=== PATIENT | female | born 1970 | race Caucasian/White ===

== ENCOUNTER → 2019-06-10 | Day surgery (SDC) | payer SELFPAY ==
[~2019-06-10] MED LIST: Dexamethasone 20 MG/5 ML VIAL ONE; Fentanyl 100 MCG/2 ML VIAL ONE; Lidocaine 1% PF 5 ML VIAL ONE; Ondansetron PF 4 MG/2 ML Vial ONE; PHENYLEPHRINE-NS 100 MCG/ML 10 ML SYRINGE ONE; PROPOFOL 200 MG/20 ML VIAL ONE; Rocuronium Bromide 10 MG/ML (10ML VIAL) ONE; Succinylcholine Chloride 20 MG/ML 10 ml SYRINGE FS ONE
--- NOTE | 2019-06-10 03:27 | HP ---
DATE OF CONSULTATION: 06/10/2019 REASON FOR CONSULTATION: Esophageal food bolus impaction. HISTORY OF PRESENT ILLNESS: The patient is a 49-year-old female with a past medical history of hypertension presenting with complaints of acute-onset dysphagia earlier today. She states that she was in her usual state of health until approximately 3 p.m. this afternoon when she was sitting down to lunch and eating a taco when she began having a sensation that the food got stuck at the level of the xiphoid process. She attempted to drink various liquids, with unsuccessful attempts, in order to force the food bolus into the stomach and instead induced increased nausea and vomiting as a result. Since that time, whenever she had attempted to eat or drink any food stuff, it would cause nausea and regurgitation of the recently ingested food. With the inability to pass the food bolus into the stomach, she then sought healthcare assistance at a local ER, where she was evaluated by the ER physician and a CT scan showing a food bolus in the distal esophagus impacted near the GE junction and a fluid level proximal to this food bolus consistent with an esophageal food bolus impaction. She was subsequently transferred to [facility] for further evaluation. Currently, she states she is doing well, but still could not tolerate her own secretions with an emesis bag at bedside, currently endorses nausea with regurgitation of any ingested foodstuff, but denies any hematemesis associated with regurgitation. Currently, she denies any fevers, chills, hematemesis, melena, hematochezia, abdominal pain, or weight loss. Of note, the patient also states that she has been having episodes of dysphagia that have been present for the last 20+ years characterized by the intermittent sensation that food would get stuck at the level of the xiphoid process. She has had approximately 4 to 5 different discrete episodes where she experienced food getting stuck at a very similar spot as tonight, but was able to pass on her own. REVIEW OF SYSTEMS: A 10-category review of systems was obtained with all responses negative, except for the pertinent positives as listed in the HPI. PAST MEDICAL HISTORY: As per HPI. PAST SURGICAL HISTORY: Right femur reconstruction with paolo placement and left ovary removal. FAMILY HISTORY: Father and brother with pancreatic cancer with an additional brother with a history of throat cancer. 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 OUTPATIENT MEDICATIONS: None. ALLERGIES: NO KNOWN DRUG ALLERGIES. PHYSICAL EXAMINATION: VITAL SIGNS: Temperature 98.3, pulse 87, blood pressure 153/105, respiratory rate 16, and saturating 97% on room air. GENERAL: The patient is lying in bed, in no acute distress, alert, and oriented x4. HEENT: Normocephalic and atraumatic. NECK: Supple. No scleral icterus or JVD is noted. CARDIOVASCULAR: Regular rate and rhythm with no discernible murmurs, gallops, or rubs. RESPIRATORY: Clear to auscultation bilaterally with no discernible wheezes or rales. ABDOMEN: Normoactive bowel sounds. Soft, nontender, and nondistended. EXTREMITIES: No cyanosis, clubbing, or edema. LABORATORY DATA: CBC with a white blood cell count of 12.7, hemoglobin 12.4, hematocrit 38.7, and platelets 310. Chemistry with a sodium of 145, potassium 3.9, chloride 111, carbon dioxide 22, BUN 17, creatinine 0.7, and glucose 134. AST 19, ALT 23, alkaline phosphatase 115, and total bilirubin 0.2. IMAGING DATA: CT of the chest was obtained on June 09, 2019, with the final read still pending at this time. Per my read, there is evidence of a food bolus impacted in the distal esophagus at approximately the gastroesophageal junction with air-fluid levels proximal to this obstruction, again consistent with a food bolus impaction. ASSESSMENT AND PLAN: The patient is a 49-year-old female with a past medical history of hypertension presenting with a food bolus impaction. Food bolus impaction. The patient is presenting with a longstanding history of dysphagia characterized as intermittent episodes of food getting stuck in the distal esophagus, primarily with the ingestion of meats. This has been present for the last 20+ years, but the patient has not sought healthcare assistance or evaluation for this particular ailment. However, earlier today, she ingested taco meat that again exhibited a sensation of getting stuck at the level of the xiphoid process, but was unable to clear on her own to the point where the patient was not able to tolerate her own secretions. She was evaluated at the [facility] emergency room and noted to have a CT chest consistent with a food bolus impaction and subsequently transferred to [facility] for further evaluation. At this time, her clinical history and imaging are consistent with a food bolus impaction, and I would recommend an urgent upper endoscopy for removal of the food bolus to prevent complications from this particular condition. RECOMMENDATIONS: 1. Would continue the patient on n.p.o. status in preparation for an EGD. 2. Would recommend an urgent EGD for evaluation of the esophagus or removal of the food bolus in the distal esophagus. 3. Further recommendations are to follow the EGD. We will continue to follow. Please call with any questions. Job ID: [id number]
--- NOTE | 2019-06-10 03:42 | OP ---
DATE OF PROCEDURE: 06/10/2019 PROCEDURE: Esophagogastroduodenoscopy with removal of foreign body. INDICATION FOR PROCEDURE: Esophageal food bolus impaction. DESCRIPTION OF PROCEDURE: After the risks and benefits of the procedure were explained to the patient including risks of bleeding, infection, perforation, reactions to anesthesia, aspiration, and/or pain, informed consent was obtained. The patient was then taken to the endoscopy suite, where general anesthesia was administered with endotracheal tube intubation via Anesthesia support. Once the patient was intubated and sedated, she was maneuvered into the left lateral decubitus position in preparation for the EGD. Once in proper position, the standard gastroscope was introduced into the mouth with intubation of the esophagus, stomach, and proximal small intestine with the findings listed below. The patient tolerated the procedure well with no immediate perioperative complications. Upon conclusion of the procedure, all equipment was removed from the patient, and she was transferred to PACU in satisfactory condition. FINDINGS: Esophagus: Normal-appearing mucosa was seen in both the proximal and mid esophagus; however, a moderate amount of retained fluid was seen in the distal esophagus as well as a large meat food bolus impacted at approximately the gastroesophageal junction. Using rat-tooth forceps, the food bolus was then grasped, and on 2 different attempts, was able to be successfully removed through the mouth. Evaluation of the mucosa after removal of the foreign body revealed significant mucosal erythema, friability, and ulceration at the gastroesophageal junction with what appeared to be a possible fibrous ring in the distal esophagus but was difficult to tell due to the amount of inflammation and edema. Dilation was not attempted at this time due to the significant amount of inflammation, edema, and increased risk of perforation with that maneuver. Otherwise, there was no evidence of mass lesions in the distal esophagus. Stomach: Normal-appearing mucosa was seen in the gastric cardia, fundus, body, greater curvature, antrum, and incisura. There was no evidence of erosions, ulcerations, mass, lesions, or active/recent bleeding. Duodenum: Normal-appearing mucosa was seen in both the duodenal bulb and second portion of the duodenum. There was no evidence of erosions, ulcerations, mass lesions, or active/recent bleeding. IMPRESSION: 1. Esophageal food bolus impaction at the gastroesophageal junction, successfully removed with rat-tooth forceps. 2. Possible distal esophageal fibrous ring that was benign and intrinsic in appearance. No intervention taken during this examination due to increased risk of perforation. 3. Significant amount of mucosal erythema, ulceration, and edema in the distal esophagus secondary to the food bolus impaction. RECOMMENDATIONS: 1. Would highly recommend chewing food adequately before swallowing to prevent further recurrences of food bolus impaction. 2. Would place the patient on a liquid diet for the next 24 to 48 hours postprocedure, then advance diet as tolerated to a soft diet. 3. Would have the patient follow up in the GI clinic in approximately 2 to 3 weeks for further evaluation at that time and repeat upper endoscopy to evaluate for possible distal esophageal stricture/stenosis. 4. Would recommend omeprazole 40 mg daily until repeat upper endoscopy. Job ID: [id number]
== END ==
LOC: SDC 01:48
PROVIDERS: ATTEND Internal Medicine
PROC: 0DC58ZZ Extirpation of Matter from Esophagus, Via Natural or Artificial Opening Endoscopic (ICD-10-PCS; principal; 2019-06-10)
DX: T18.128A Food in esophagus causing other injury, initial encounter (principal); I10 Essential (primary) hypertension; F17.210 Nicotine dependence, cigarettes, uncomplicated
CPT/HCPCS: J1100; J2001; J2405; J2704; J3010

== ENCOUNTER 2021-12-08 12:33 | Inpatient (IN) | payer SELFPAY ==
[~2021-12-08 12:33] MED LIST changes: -Dexamethasone 20 MG/5 ML VIAL ONE; -Fentanyl 100 MCG/2 ML VIAL ONE; +Iopamidol 370 76% 100 ML VIAL ONE; -Lidocaine 1% PF 5 ML VIAL ONE; -Ondansetron PF 4 MG/2 ML Vial ONE; -PHENYLEPHRINE-NS 100 MCG/ML 10 ML SYRINGE ONE; -Succinylcholine Chloride 20 MG/ML 10 ml SYRINGE FS ONE
[2021-12-08] MEDS ORDERED: Ondansetron ODT 4 MG TAB SL PRN (13:00)
[2021-12-08] MEDS ORDERED: Ondansetron PF 4 MG/2 ML Vial IVP PRN (13:00)
[2021-12-08] MEDS: Sodium Chloride 0.9% 1,000 ML IV SCH (18:37)
[2021-12-08] MEDS: BARICITINIB 2 MG TAB PO SCH (21:07)
[2021-12-08] MEDS ORDERED: HYDROcodone/Acetaminophen 5/325 mg Tablet PO SCH (21:15)
[2021-12-09] MEDS ORDERED: Metoprolol Tartrate 5 MG/5 ML VIAL ONE (02:25)
[2021-12-09] MEDS ORDERED: Metoprolol Tartrate 5 MG/5 ML VIAL IVP SCH (02:30)
[2021-12-09 02:34] LABS: CO2 Tension 40.9 mmHg (35.0-45.0); Calcium, Ionized (arterial) 1.15 mmol/L (1.12-1.30); Carboxyhemoglobin (COHb) 0.1 gm% (0.0-3.0); Hemoglobin (Hb) 10.2 g/dL (12.0-16.0); O2 Tension (PaO2), arterial 60.5 mmHg (80.0-100.0); Potassium - ABG Lab 3.98 mmol/L (3.70-5.30); pH, Arterial 7.39 (7.35-7.45)
[2021-12-09 02:35] LABS: Puncture Site RRA
[2021-12-09 02:36] LABS: ALV-art Gradient 530.075 mmHg (0-20)
[2021-12-09] MEDS ORDERED: Lorazepam 2 MG/ML VIAL ONE (02:39)
[2021-12-09] MEDS ORDERED: Lorazepam 2 MG/ML VIAL SLOW IVP SCH (02:45)
[2021-12-09] MEDS ORDERED: Diltiazem HCl 125 MG, Admixture Fee 1 EACH in Sodium Chloride 0.9% 100 ML IVPB SCH (06:15)
[2021-12-09] MEDS: Lorazepam 2 MG/ML VIAL SLOW IVP PRN ×5 (06:20→22:52)
[2021-12-09] MEDS ORDERED: Azithromycin 500 MG in Sodium Chloride 0.9% 250 ML 250 ML IVPB SCH (08:00)
[2021-12-09] MEDS: cefTRIAXone\\ROCEPHIN 1 GM in Sodium Chloride 0.9% 100 ML IVPB SCH (08:01)
[2021-12-09] MEDS: Sodium Chloride 0.9% 1,000 ML IV SCH (08:02)
[2021-12-09] MEDS: Enoxaparin Sodium 40 MG/0.4 ML SYRINGE SC SCH ×2 (08:42→20:55)
[2021-12-09] MEDS: Dexamethasone 10 MG/ML VIAL SLOW IVP SCH ×2 (08:42→20:54)
[2021-12-09] MEDS ORDERED: Furosemide 20 MG/2 ML VIAL SLOW IVP SCH (09:00)
[2021-12-09] MEDS ORDERED: Dexamethasone 10 MG/ML VIAL SLOW IVP SCH (09:00)
[2021-12-09] MEDS ORDERED: FLU VACC QS2021-22(6MOS UP)/PF 60 MCG/0.5 ML SYRINGE IM ONE (09:00)
[2021-12-09] MEDS ORDERED: Enoxaparin Sodium 40 MG/0.4 ML SYRINGE SC SCH (09:00)
[2021-12-09] MEDS ORDERED: Propofol 1,000 MG/100 ML VIAL IV ONE (12:01)
[2021-12-09] MEDS ORDERED: Fentanyl 100 MCG/2 ML VIAL ONE (12:01)
[2021-12-09] MEDS ORDERED: Propofol BOLUS 1,000 MG/100 ML VIAL IV PRN (12:30)
[2021-12-09] MEDS ORDERED: DISCONTINUE PREVIOUS NARCOTIC PAIN MEDICATIONS AND BENZODIAZEPINES FS SCH (12:30)
[2021-12-09] MEDS ORDERED: Fentanyl BOLUS 250 ML IVPB PRN (12:30)
[2021-12-09] MEDS ORDERED: Ventilator Sedation Protocol 1 EACH FS SCH (12:30)
[2021-12-09] MEDS ORDERED: Morphine 4 MG/ML VIAL SLOW IVP PRN (12:31)
[2021-12-09 12:43] LABS: Actual Bicarbonate (HCO3a) 24.7 mEq/L (22-28); Base Excess (BEa) -0.6 mEq/L (-2.0 to +3.0); CO2 Tension 43.5 mmHg (35.0-45.0); Carboxyhemoglobin (COHb) 0.2 gm% (0.0-3.0); Hemoglobin (Hb) 10.4 g/dL (12.0-16.0); O2 Tension (PaO2), arterial 70.6 mmHg (80.0-100.0); Potassium - ABG Lab 3.81 mmol/L (3.70-5.30); pH, Arterial 7.37 (7.35-7.45)
[2021-12-09 12:44] LABS: ALV-art Gradient 604.025 mmHg (0-20); Puncture Site RBA
[2021-12-09] MEDS: Fentanyl CADD 100 ML IV SCH (13:37)
[2021-12-09] MEDS: Propofol 1,000 MG/100 ML VIAL IV PRN ×4 (15:06→23:48)
[2021-12-09] MEDS ORDERED: Vecuronium 10 MG VIAL ONE (15:21)
[2021-12-09] MEDS: Azithromycin 500 MG in Sodium Chloride 0.9% 250 ML 250 ML IVPB SCH (15:35)
[2021-12-09 16:32] LABS: #Lymphocytes 0.8 thou/uL (1.20-3.40); #Monocytes 0.8 thou/uL (0.11-0.59); #Neutrophils 11.1 thou/uL (1.40-6.50); %Lymphocytes 6.3 % (21.0-51.0); %Monocytes 6.5 % (0.0-10.0); %Neutrophils 87.2 % (42.0-75.0); Hemoglobin 8.8 g/dL (12.0-16.0); Mean Corpuscular HGB CONC 31.4 g/dL (32.0-36.0); Mean Corpuscular Hemoglobin 23.1 pg (27.0-31.0); Mean Corpuscular Volume 73.7 fL (78.0-98.0); Mean Platelet Volume 7.5 fL (7.4-10.4); Platelet Count 438 thou/uL (130-400); RBC Distribution Width 16.1 % (11.5-14.5); Red Blood Cell (RBC) Count 3.79 mill/uL (4.20-5.40); White Blood Cell (WBC) Count 12.7 thou/uL (4.8-10.8)
[2021-12-09 16:43] LABS: Anion Gap 13 mmol/L (10-20); BUN (Urea Nitrogen) 15 mg/dL (9.8-20.1); Calc. Creatinine Clearance 167 mL/min (70-130); Calcium 9.2 mg/dL (7.8-10.44); Carbon Dioxide 26 mmol/L (22-29); Chloride 105 mmol/L (98-107); Glucose 164 mg/dL (70-105); Potassium 3.7 mmol/L (3.5-5.1); Sodium 140 mmol/L (136-145)
[2021-12-09 17:00] LABS: Hypochromia SLIGHT = 6-15 cells (100X) (0-5/hpf); MDiff Complete? YES; Microcytosis SLIGHT = 6-15 cells (100X) (0-5/hpf); Platelet Morphology Comment Appears Increased; Polychromasia SLIGHT = 2-3 cells (100X) (0-2/hpf)
[2021-12-09] MEDS ORDERED: Vecuronium 10 MG VIAL IV PRN (18:35)
[2021-12-09] MEDS: Senokot S 8.6-50 MG TAB PO SCH (20:40)
[2021-12-09] MEDS ORDERED: Sterile Water 10 ML ONE (20:45)
[2021-12-09] MEDS: BARICITINIB 2 MG TAB PO SCH (20:54)
[2021-12-09] MEDS: Flecainide 50 MG TAB PER TUBE SCH (20:54)
[2021-12-09] MEDS ORDERED: Sterile Water 10 ML VIAL IVP PRN (23:00)
[2021-12-10] MEDS: Fentanyl CADD 100 ML IV SCH ×2 (00:37→15:15)
[2021-12-10] MEDS: Vecuronium 10 MG VIAL IV PRN ×5 (00:51→20:40)
[2021-12-10] MEDS: Propofol 1,000 MG/100 ML VIAL IV PRN ×5 (04:20→20:39)
[2021-12-10] MEDS: Lorazepam 2 MG/ML VIAL SLOW IVP PRN ×5 (04:21→20:40)
[2021-12-10] MEDS: cefTRIAXone\\ROCEPHIN 1 GM in Sodium Chloride 0.9% 100 ML IVPB SCH (06:41)
[2021-12-10] MEDS ORDERED: Dextrose 50% Abboject 50 ML SYRINGE SLOW IVP PRN (08:41)
[2021-12-10] MEDS ORDERED: Dextrose 5% in Water 1,000 ML IV PRN (08:41)
[2021-12-10] MEDS: Dexamethasone 10 MG/ML VIAL SLOW IVP SCH ×2 (08:46→20:41)
[2021-12-10] MEDS: Enoxaparin Sodium 40 MG/0.4 ML SYRINGE SC SCH ×2 (08:46→20:37)
[2021-12-10] MEDS: Flecainide 50 MG TAB PER TUBE SCH ×2 (08:46→20:40)
[2021-12-10 09:26] LABS: Anion Gap 17 mmol/L (10-20); BUN (Urea Nitrogen) 17 mg/dL (9.8-20.1); Calc. Creatinine Clearance 191 mL/min (70-130); Calcium 8.8 mg/dL (7.8-10.44); Carbon Dioxide 21 mmol/L (22-29); Chloride 105 mmol/L (98-107); Glucose 112 mg/dL (70-105); Potassium 3.6 mmol/L (3.5-5.1); Sodium 139 mmol/L (136-145)
[2021-12-10] MEDS: Pantoprazole 40 MG VIAL IVP SCH (14:48)
[2021-12-10] MEDS: Polyethylene Glycol 3350 17 GM Packet PER TUBE SCH (14:55)
[2021-12-10] MEDS: Senokot S 8.6-50 MG TAB PO SCH ×2 (14:56→21:16)
[2021-12-10] MEDS: Azithromycin 500 MG in Sodium Chloride 0.9% 250 ML 250 ML IVPB SCH (15:18)
[2021-12-10 15:42] LABS: #Basophils 0.1 thou/uL (0.0-0.2); #Lymphocytes 0.8 thou/uL (1.20-3.40); #Monocytes 0.6 thou/uL (0.11-0.59); #Neutrophils 8.1 thou/uL (1.40-6.50); %Basophils 0.7 % (0.0-1.0); %Eosinophils 0.3 % (0.0-10.0); %Lymphocytes 8.3 % (21.0-51.0); %Monocytes 6.6 % (0.0-10.0); %Neutrophils 84.1 % (42.0-75.0); Actual Bicarbonate (HCO3v) 21 mEq/L (22-28); Base Excess -0.1 mEq/L (-2.0 to +3.0); Calcium, Ionized (venous) 0.99 mmol/L (1.16-1.32); Chloride (VBG) 107 mmol/L (98-106); Hemoglobin 8.8 g/dL (12.0-16.0); Hemoglobin (Hb) 9.8 g/dL (11.7-16.0); Mean Corpuscular HGB CONC 32.3 g/dL (32.0-36.0); Mean Corpuscular Hemoglobin 23.3 pg (27.0-31.0); Platelet Count 423 thou/uL (130-400); Potassium (VBG) 3.84 mmol/L (3.70-5.30); RBC Distribution Width 16.3 % (11.5-14.5); Red Blood Cell (RBC) Count 3.79 mill/uL (4.20-5.40); Sodium 139.8 mmol/L (133-146); White Blood Cell (WBC) Count 9.6 thou/uL (4.8-10.8); pH (venous) 7.57 (7.32-7.43)
[2021-12-10] MEDS ORDERED: Sterile Water 10 ML ONE (20:30)
[2021-12-10] MEDS: BARICITINIB 2 MG TAB PO SCH (20:40)
[2021-12-11] MEDS: Propofol 1,000 MG/100 ML VIAL IV PRN ×7 (00:17→20:07)
[2021-12-11] MEDS: Fentanyl CADD 100 ML IV SCH ×2 (02:00→15:12)
[2021-12-11 04:34] LABS: #Monocytes 0.8 thou/uL (0.11-0.59); #Neutrophils 7.8 thou/uL (1.40-6.50); %Eosinophils 0.4 % (0.0-10.0); %Lymphocytes 10.8 % (21.0-51.0); %Monocytes 8.5 % (0.0-10.0); %Neutrophils 80.3 % (42.0-75.0); Hemoglobin 7.8 g/dL (12.0-16.0); Mean Corpuscular HGB CONC 32.8 g/dL (32.0-36.0); Mean Corpuscular Hemoglobin 23.8 pg (27.0-31.0); Mean Corpuscular Volume 72.6 fL (78.0-98.0); Mean Platelet Volume 7.7 fL (7.4-10.4); Platelet Count 495 thou/uL (130-400); RBC Distribution Width 16.3 % (11.5-14.5); Red Blood Cell (RBC) Count 3.29 mill/uL (4.20-5.40); White Blood Cell (WBC) Count 9.7 thou/uL (4.8-10.8)
[2021-12-11 04:55] LABS: Anion Gap 16 mmol/L (10-20); BUN (Urea Nitrogen) 17 mg/dL (9.8-20.1); Calc. Creatinine Clearance 175 mL/min (70-130); Calcium 9.1 mg/dL (7.8-10.44); Carbon Dioxide 23 mmol/L (22-29); Chloride 105 mmol/L (98-107); Glucose 145 mg/dL (70-105); Potassium 3.9 mmol/L (3.5-5.1); Sodium 140 mmol/L (136-145)
[2021-12-11 06:49] LABS: Actual Bicarbonate (HCO3a) 23.1 mEq/L (22-28); Base Excess (BEa) -0.6 mEq/L (-2.0 to +3.0); Calcium, Ionized (arterial) 1.17 mmol/L (1.12-1.30); Carboxyhemoglobin (COHb) 0.3 gm% (0.0-3.0); Hemoglobin (Hb) 9.2 g/dL (12.0-16.0); O2 Tension (PaO2), arterial 81.3 mmHg (80.0-100.0); Potassium - ABG Lab 3.73 mmol/L (3.70-5.30); pH, Arterial 7.45 (7.35-7.45)
[2021-12-11 07:14] LABS: Puncture Site LRA
[2021-12-11] MEDS: Dexamethasone 10 MG/ML VIAL SLOW IVP SCH ×2 (09:32→20:03)
[2021-12-11] MEDS: Flecainide 50 MG TAB PER TUBE SCH ×2 (09:32→20:03)
[2021-12-11] MEDS: Enoxaparin Sodium 40 MG/0.4 ML SYRINGE SC SCH ×2 (09:32→20:04)
[2021-12-11] MEDS: cefTRIAXone\\ROCEPHIN 1 GM in Sodium Chloride 0.9% 100 ML IVPB SCH (09:32)
[2021-12-11] MEDS: Pantoprazole 40 MG VIAL IVP SCH (09:33)
[2021-12-11] MEDS: Vecuronium 10 MG VIAL IV PRN (12:50)
[2021-12-11] MEDS: Azithromycin 500 MG in Sodium Chloride 0.9% 250 ML 250 ML IVPB SCH (15:12)
[2021-12-11] MEDS: Senokot S 8.6-50 MG TAB PO SCH ×2 (20:04→20:55)
[2021-12-11] MEDS: BARICITINIB 2 MG TAB PO SCH (20:04)
[2021-12-11] MEDS: Polyethylene Glycol 3350 17 GM Packet PER TUBE SCH (20:54)
[2021-12-12] MEDS: Propofol 1,000 MG/100 ML VIAL IV PRN ×6 (00:59→22:12)
[2021-12-12 04:22] LABS: #Eosinphils 0.1 thou/uL (0.0-0.7); #Lymphocytes 1.3 thou/uL (1.20-3.40); #Monocytes 0.8 thou/uL (0.11-0.59); #Neutrophils 7.4 thou/uL (1.40-6.50); %Basophils 0.1 % (0.0-1.0); %Eosinophils 1.2 % (0.0-10.0); %Lymphocytes 13.7 % (21.0-51.0); %Monocytes 8.3 % (0.0-10.0); %Neutrophils 76.8 % (42.0-75.0); Hemoglobin 8.7 g/dL (12.0-16.0); Mean Corpuscular HGB CONC 31.9 g/dL (32.0-36.0); Mean Corpuscular Hemoglobin 23.3 pg (27.0-31.0); Mean Corpuscular Volume 72.9 fL (78.0-98.0); Mean Platelet Volume 7.9 fL (7.4-10.4); Platelet Count 498 thou/uL (130-400); RBC Distribution Width 16.3 % (11.5-14.5); Red Blood Cell (RBC) Count 3.75 mill/uL (4.20-5.40); White Blood Cell (WBC) Count 9.7 thou/uL (4.8-10.8)
[2021-12-12 04:44] LABS: Anion Gap 13 mmol/L (10-20); BUN (Urea Nitrogen) 19 mg/dL (9.8-20.1); Calc. Creatinine Clearance 172 mL/min (70-130); Calcium 9.2 mg/dL (7.8-10.44); Carbon Dioxide 26 mmol/L (22-29); Chloride 106 mmol/L (98-107); Glucose 144 mg/dL (70-105); Potassium 3.9 mmol/L (3.5-5.1); Sodium 141 mmol/L (136-145)
[2021-12-12] MEDS: cefTRIAXone\\ROCEPHIN 1 GM in Sodium Chloride 0.9% 100 ML IVPB SCH (06:18)
[2021-12-12 07:22] LABS: Actual Bicarbonate (HCO3a) 24.7 mEq/L (22-28); Base Excess (BEa) 0.1 mEq/L (-2.0 to +3.0); Calcium, Ionized (arterial) 1.21 mmol/L (1.12-1.30); Carboxyhemoglobin (COHb) 0.6 gm% (0.0-3.0); Hemoglobin (Hb) 9.1 g/dL (12.0-16.0); O2 Tension (PaO2), arterial 64.7 mmHg (80.0-100.0); Potassium - ABG Lab 3.64 mmol/L (3.70-5.30); pH, Arterial 7.41 (7.35-7.45)
[2021-12-12 07:23] LABS: Puncture Site RRA
[2021-12-12] MEDS: Fentanyl CADD 100 ML IV SCH (07:46)
[2021-12-12] MEDS: Flecainide 50 MG TAB PER TUBE SCH ×2 (09:02→20:30)
[2021-12-12] MEDS: Polyethylene Glycol 3350 17 GM Packet PER TUBE SCH (09:02)
[2021-12-12] MEDS: Pantoprazole 40 MG VIAL IVP SCH (09:07)
[2021-12-12] MEDS: Dexamethasone 10 MG/ML VIAL SLOW IVP SCH ×2 (09:07→20:31)
[2021-12-12] MEDS: Enoxaparin Sodium 40 MG/0.4 ML SYRINGE SC SCH ×2 (09:07→20:31)
[2021-12-12] MEDS: Senokot S 8.6-50 MG TAB PO SCH ×2 (09:08→20:31)
[2021-12-12] MEDS: Lorazepam 2 MG/ML VIAL SLOW IVP PRN ×2 (15:09→20:30)
[2021-12-12] MEDS: BARICITINIB 2 MG TAB PO SCH (20:31)
[2021-12-13] MEDS: fentaNYL Citrate-0.9 % NaCl/PF 100 ML IVPB SCH ×2 (00:34→17:22)
[2021-12-13] MEDS: Propofol 1,000 MG/100 ML VIAL IV PRN ×5 (01:25→20:24)
[2021-12-13 04:05] LABS: #Eosinphils 0.1 thou/uL (0.0-0.7); #Lymphocytes 1.3 thou/uL (1.20-3.40); #Monocytes 0.8 thou/uL (0.11-0.59); #Neutrophils 6.2 thou/uL (1.40-6.50); %Basophils 0.1 % (0.0-1.0); %Eosinophils 1.5 % (0.0-10.0); %Lymphocytes 15.1 % (21.0-51.0); %Monocytes 9.2 % (0.0-10.0); Hemoglobin 8.1 g/dL (12.0-16.0); Mean Corpuscular HGB CONC 31.5 g/dL (32.0-36.0); Mean Corpuscular Hemoglobin 23.3 pg (27.0-31.0); Mean Platelet Volume 8.1 fL (7.4-10.4); Platelet Count 479 thou/uL (130-400); RBC Distribution Width 16.2 % (11.5-14.5); Red Blood Cell (RBC) Count 3.46 mill/uL (4.20-5.40); White Blood Cell (WBC) Count 8.4 thou/uL (4.8-10.8)
[2021-12-13 04:19] LABS: ALT (SGPT) 48 U/L (8-55); AST (SGOT) 51 U/L (5-34); Albumin 2.9 g/dL (3.5-5.0); Alkaline Phosphatase 127 U/L (40-110); Bilirubin, Direct 0.1 mg/dL (0.1-0.3); Bilirubin, Total 0.2 mg/dL (0.2-1.2); Protein, Total 6.2 g/dL (6.0-8.3)
[2021-12-13 04:33] LABS: Anion Gap 10 mmol/L (10-20); BUN (Urea Nitrogen) 17 mg/dL (9.8-20.1); CRP (Inflammatory) 2.06 mg/dL (= or < 0.5); Calc. Creatinine Clearance 190 mL/min (70-130); Calcium 8.9 mg/dL (7.8-10.44); Carbon Dioxide 29 mmol/L (22-29); Chloride 105 mmol/L (98-107); Glucose 144 mg/dL (70-105); Potassium 3.9 mmol/L (3.5-5.1); Sodium 140 mmol/L (136-145)
[2021-12-13] MEDS: cefTRIAXone\\ROCEPHIN 1 GM in Sodium Chloride 0.9% 100 ML IVPB SCH (06:09)
[2021-12-13 08:11] LABS: Actual Bicarbonate (HCO3a) 28.8 mEq/L (22-28); Base Excess (BEa) 3.8 mEq/L (-2.0 to +3.0); CO2 Tension 45.8 mmHg (35.0-45.0); Calcium, Ionized (arterial) 1.16 mmol/L (1.12-1.30); Carboxyhemoglobin (COHb) 0.3 gm% (0.0-3.0); Hemoglobin (Hb) 9.2 g/dL (12.0-16.0); Potassium - ABG Lab 3.66 mmol/L (3.70-5.30); pH, Arterial 7.42 (7.35-7.45)
[2021-12-13 08:12] LABS: O2 Tension (PaO2), arterial 59.1 mmHg (80.0-100.0); Peep/CPAP 7.5 cmH2O; Puncture Site RRA
[2021-12-13] MEDS: Flecainide 50 MG TAB PER TUBE SCH ×2 (09:13→20:22)
[2021-12-13] MEDS: Pantoprazole 40 MG VIAL IVP SCH (09:13)
[2021-12-13] MEDS: Enoxaparin Sodium 40 MG/0.4 ML SYRINGE SC SCH ×2 (09:14→20:22)
[2021-12-13] MEDS: Senokot S 8.6-50 MG TAB PO SCH ×2 (09:14→20:21)
[2021-12-13] MEDS: Polyethylene Glycol 3350 17 GM Packet PER TUBE SCH (09:14)
[2021-12-13] MEDS: Dexamethasone 10 MG/ML VIAL SLOW IVP SCH ×2 (09:14→20:22)
[2021-12-13] MEDS: HumaLOG 300 UNITS/3 ML VIAL SC PRN (16:18)
[2021-12-13] MEDS: BARICITINIB 2 MG TAB PO SCH (20:22)
[2021-12-13] MEDS: Pantoprazole 40 MG GRANULES PACKET PO SCH (20:59)
[2021-12-14] MEDS: Propofol 1,000 MG/100 ML VIAL IV PRN ×7 (00:26→23:23)
[2021-12-14 04:36] LABS: #Eosinphils 0.1 thou/uL (0.0-0.7); #Lymphocytes 1.7 thou/uL (1.20-3.40); #Monocytes 0.7 thou/uL (0.11-0.59); #Neutrophils 8.2 thou/uL (1.40-6.50); %Basophils 0.2 % (0.0-1.0); %Eosinophils 0.7 % (0.0-10.0); %Lymphocytes 16.1 % (21.0-51.0); %Monocytes 7.5 % (0.0-10.0); %Neutrophils 75.5 % (42.0-75.0); Hemoglobin 8.4 g/dL (12.0-16.0); Mean Corpuscular HGB CONC 31.2 g/dL (32.0-36.0); Mean Corpuscular Hemoglobin 23.2 pg (27.0-31.0); Mean Corpuscular Volume 74.4 fL (78.0-98.0); Mean Platelet Volume 8.3 fL (7.4-10.4); Platelet Count 491 thou/uL (130-400); RBC Distribution Width 16.4 % (11.5-14.5); Red Blood Cell (RBC) Count 3.61 mill/uL (4.20-5.40); White Blood Cell (WBC) Count 10.7 thou/uL (4.8-10.8)
[2021-12-14 04:50] LABS: Anion Gap 13 mmol/L (10-20); BUN (Urea Nitrogen) 15 mg/dL (9.8-20.1); Calc. Creatinine Clearance 196 mL/min (70-130); Calcium 8.7 mg/dL (7.8-10.44); Carbon Dioxide 28 mmol/L (22-29); Chloride 102 mmol/L (98-107); Glucose 140 mg/dL (70-105); Sodium 139 mmol/L (136-145)
[2021-12-14] MEDS: cefTRIAXone\\ROCEPHIN 1 GM in Sodium Chloride 0.9% 100 ML IVPB SCH (06:08)
[2021-12-14 07:29] LABS: Actual Bicarbonate (HCO3a) 29.5 mEq/L (22-28); Base Excess (BEa) 4.7 mEq/L (-2.0 to +3.0); CO2 Tension 45.3 mmHg (35.0-45.0); Carboxyhemoglobin (COHb) 0.5 gm% (0.0-3.0); Hemoglobin (Hb) 9.1 g/dL (12.0-16.0); Potassium - ABG Lab 3.96 mmol/L (3.70-5.30); pH, Arterial 7.43 (7.35-7.45)
[2021-12-14 07:30] LABS: O2 Tension (PaO2), arterial 48.4 mmHg (80.0-100.0)
[2021-12-14 07:31] LABS: ALV-art Gradient 180.175 mmHg (0-20); Peep/CPAP 7.5 cmH2O; Puncture Site RRA
[2021-12-14] MEDS: Polyethylene Glycol 3350 17 GM Packet PER TUBE SCH (07:46)
[2021-12-14] MEDS: Dexamethasone 10 MG/ML VIAL SLOW IVP SCH ×2 (07:46→20:01)
[2021-12-14] MEDS: Enoxaparin Sodium 40 MG/0.4 ML SYRINGE SC SCH ×2 (07:46→20:01)
[2021-12-14] MEDS: Senokot S 8.6-50 MG TAB PO SCH ×2 (07:46→19:59)
[2021-12-14] MEDS: Flecainide 50 MG TAB PER TUBE SCH ×2 (08:21→20:01)
[2021-12-14] MEDS: Pantoprazole 40 MG GRANULES PACKET PO SCH ×2 (08:21→20:01)
[2021-12-14] MEDS: fentaNYL Citrate-0.9 % NaCl/PF 100 ML IVPB SCH (09:02)
[2021-12-14] MEDS: lamoTRIgine 25 MG TAB PER TUBE SCH (10:54)
[2021-12-14] MEDS: Lorazepam 2 MG/ML VIAL SLOW IVP PRN (14:10)
[2021-12-14] MEDS: BARICITINIB 2 MG TAB PO SCH (19:59)
[2021-12-15] MEDS: fentaNYL Citrate-0.9 % NaCl/PF 100 ML IVPB SCH ×2 (02:29→14:06)
[2021-12-15] MEDS: Propofol 1,000 MG/100 ML VIAL IV PRN ×5 (03:07→23:16)
[2021-12-15 04:11] LABS: Anion Gap 15 mmol/L (10-20); BUN (Urea Nitrogen) 15 mg/dL (9.8-20.1); Calc. Creatinine Clearance 194 mL/min (70-130); Calcium 8.7 mg/dL (7.8-10.44); Carbon Dioxide 24 mmol/L (22-29); Chloride 104 mmol/L (98-107); Glucose 140 mg/dL (70-105); Potassium 3.9 mmol/L (3.5-5.1); Sodium 139 mmol/L (136-145)
[2021-12-15 04:51] LABS: #Eosinphils 0.2 thou/uL (0.0-0.7); #Lymphocytes 1.7 thou/uL (1.20-3.40); #Monocytes 0.6 thou/uL (0.11-0.59); #Neutrophils 6.7 thou/uL (1.40-6.50); %Basophils 0.1 % (0.0-1.0); %Monocytes 6.9 % (0.0-10.0); %Neutrophils 73.1 % (42.0-75.0); Anisocytosis SLIGHT = 6-15 cells (100X) (0-5/hpf); Hemoglobin 8.1 g/dL (12.0-16.0); Large Platelets SLIGHT; MDiff Complete? YES; Mean Corpuscular HGB CONC 30.5 g/dL (32.0-36.0); Mean Corpuscular Hemoglobin 22.2 pg (27.0-31.0); Mean Corpuscular Volume 72.6 fL (78.0-98.0); Mean Platelet Volume 8.7 fL (7.4-10.4); Platelet Count 475 thou/uL (130-400); RBC Distribution Width 16.9 % (11.5-14.5); Red Blood Cell (RBC) Count 3.65 mill/uL (4.20-5.40); White Blood Cell (WBC) Count 9.2 thou/uL (4.8-10.8)
[2021-12-15] MEDS: cefTRIAXone\\ROCEPHIN 1 GM in Sodium Chloride 0.9% 100 ML IVPB SCH (06:05)
[2021-12-15 07:04] LABS: Actual Bicarbonate (HCO3a) 26.8 mEq/L (22-28); Base Excess (BEa) 4.5 mEq/L (-2.0 to +3.0); CO2 Tension 31.2 mmHg (35.0-45.0); Calcium, Ionized (arterial) 1.16 mmol/L (1.12-1.30); Carboxyhemoglobin (COHb) 0.1 gm% (0.0-3.0); O2 Tension (PaO2), arterial 84.3 mmHg (80.0-100.0); Potassium - ABG Lab 3.49 mmol/L (3.70-5.30)
[2021-12-15 07:11] LABS: Puncture Site RRA; pH, Arterial 7.55 (7.35-7.45)
[2021-12-15] MEDS: Polyethylene Glycol 3350 17 GM Packet PER TUBE SCH (07:55)
[2021-12-15] MEDS: Pantoprazole 40 MG GRANULES PACKET PO SCH ×2 (07:55→20:41)
[2021-12-15] MEDS: Enoxaparin Sodium 40 MG/0.4 ML SYRINGE SC SCH ×2 (07:55→20:41)
[2021-12-15] MEDS: lamoTRIgine 25 MG TAB PER TUBE SCH (07:56)
[2021-12-15] MEDS: Senokot S 8.6-50 MG TAB PO SCH ×2 (07:56→20:41)
[2021-12-15] MEDS: Flecainide 50 MG TAB PER TUBE SCH ×2 (07:58→20:42)
[2021-12-15] MEDS: Dexamethasone 10 MG/ML VIAL SLOW IVP SCH ×2 (07:58→20:41)
[2021-12-15] MEDS: Lorazepam 2 MG/ML VIAL SLOW IVP PRN ×2 (08:43→13:40)
[2021-12-15] MEDS: BARICITINIB 2 MG TAB PO SCH (20:41)
[2021-12-16] MEDS: Propofol 1,000 MG/100 ML VIAL IV PRN ×4 (03:29→21:24)
[2021-12-16 04:22] LABS: #Eosinphils 0.1 thou/uL (0.0-0.7); #Lymphocytes 1.3 thou/uL (1.20-3.40); #Monocytes 0.4 thou/uL (0.11-0.59); #Neutrophils 6.4 thou/uL (1.40-6.50); %Basophils 0.1 % (0.0-1.0); %Eosinophils 0.7 % (0.0-10.0); %Lymphocytes 15.9 % (21.0-51.0); %Monocytes 5.4 % (0.0-10.0); %Neutrophils 77.9 % (42.0-75.0); Hemoglobin 8.1 g/dL (12.0-16.0); Mean Corpuscular HGB CONC 30.9 g/dL (32.0-36.0); Mean Corpuscular Hemoglobin 22.9 pg (27.0-31.0); Mean Corpuscular Volume 74.2 fL (78.0-98.0); Mean Platelet Volume 8.6 fL (7.4-10.4); Platelet Count 453 thou/uL (130-400); RBC Distribution Width 16.6 % (11.5-14.5); Red Blood Cell (RBC) Count 3.54 mill/uL (4.20-5.40); White Blood Cell (WBC) Count 8.2 thou/uL (4.8-10.8)
[2021-12-16 04:43] LABS: ALT (SGPT) 42 U/L (8-55); AST (SGOT) 16 U/L (5-34); Alkaline Phosphatase 117 U/L (40-110); Anion Gap 10 mmol/L (10-20); BUN (Urea Nitrogen) 17 mg/dL (9.8-20.1); Bilirubin, Direct 0.1 mg/dL (0.1-0.3); Bilirubin, Total 0.2 mg/dL (0.2-1.2); Calc. Creatinine Clearance 206 mL/min (70-130); Calcium 8.8 mg/dL (7.8-10.44); Carbon Dioxide 29 mmol/L (22-29); Chloride 104 mmol/L (98-107); Glucose 164 mg/dL (70-105); Potassium 4.2 mmol/L (3.5-5.1); Protein, Total 6.2 g/dL (6.0-8.3); Sodium 139 mmol/L (136-145)
[2021-12-16] MEDS: cefTRIAXone\\ROCEPHIN 1 GM in Sodium Chloride 0.9% 100 ML IVPB SCH (06:07)
[2021-12-16 07:17] LABS: Actual Bicarbonate (HCO3a) 28.7 mEq/L (22-28); Base Excess (BEa) 3.7 mEq/L (-2.0 to +3.0); CO2 Tension 45.6 mmHg (35.0-45.0); Calcium, Ionized (arterial) 1.21 mmol/L (1.12-1.30); Carboxyhemoglobin (COHb) 0.3 gm% (0.0-3.0); Hemoglobin (Hb) 9.1 g/dL (12.0-16.0); O2 Tension (PaO2), arterial 100.4 mmHg (80.0-100.0); Potassium - ABG Lab 3.99 mmol/L (3.70-5.30); pH, Arterial 7.42 (7.35-7.45)
[2021-12-16 07:24] LABS: Puncture Site RRA
[2021-12-16] MEDS: Enoxaparin Sodium 40 MG/0.4 ML SYRINGE SC SCH ×2 (07:51→21:24)
[2021-12-16] MEDS: lamoTRIgine 25 MG TAB PER TUBE SCH (07:51)
[2021-12-16] MEDS: Polyethylene Glycol 3350 17 GM Packet PER TUBE SCH (07:51)
[2021-12-16] MEDS: Pantoprazole 40 MG GRANULES PACKET PO SCH ×2 (07:51→21:56)
[2021-12-16] MEDS: Senokot S 8.6-50 MG TAB PO SCH ×2 (07:51→21:26)
[2021-12-16] MEDS: fentaNYL Citrate-0.9 % NaCl/PF 100 ML IVPB SCH ×2 (07:52→21:28)
[2021-12-16] MEDS: Dexamethasone 10 MG/ML VIAL SLOW IVP SCH ×2 (07:58→21:25)
[2021-12-16] MEDS: Flecainide 50 MG TAB PER TUBE SCH ×2 (07:58→21:25)
[2021-12-16] MEDS: Lorazepam 2 MG/ML VIAL SLOW IVP PRN (13:03)
[2021-12-16] MEDS: BARICITINIB 2 MG TAB PO SCH (21:25)
[2021-12-17] MEDS: Propofol 1,000 MG/100 ML VIAL IV PRN ×4 (02:58→21:31)
[2021-12-17 04:31] LABS: #Eosinphils 0.1 thou/uL (0.0-0.7); #Lymphocytes 1.3 thou/uL (1.20-3.40); #Monocytes 0.6 thou/uL (0.11-0.59); #Neutrophils 5.4 thou/uL (1.40-6.50); %Basophils 0.3 % (0.0-1.0); %Lymphocytes 17.2 % (21.0-51.0); %Monocytes 8.5 % (0.0-10.0); %Neutrophils 73.1 % (42.0-75.0); Hemoglobin 8.3 g/dL (12.0-16.0); Mean Corpuscular HGB CONC 30.3 g/dL (32.0-36.0); Mean Corpuscular Hemoglobin 22.6 pg (27.0-31.0); Mean Corpuscular Volume 74.7 fL (78.0-98.0); Mean Platelet Volume 8.6 fL (7.4-10.4); Platelet Count 423 thou/uL (130-400); RBC Distribution Width 16.8 % (11.5-14.5); Red Blood Cell (RBC) Count 3.64 mill/uL (4.20-5.40); White Blood Cell (WBC) Count 7.4 thou/uL (4.8-10.8)
[2021-12-17 04:51] LABS: Anion Gap 11 mmol/L (10-20); BUN (Urea Nitrogen) 17 mg/dL (9.8-20.1); Calc. Creatinine Clearance 181 mL/min (70-130); Carbon Dioxide 29 mmol/L (22-29); Chloride 103 mmol/L (98-107); Glucose 155 mg/dL (70-105); Potassium 4.3 mmol/L (3.5-5.1); Sodium 139 mmol/L (136-145)
[2021-12-17] MEDS: cefTRIAXone\\ROCEPHIN 1 GM in Sodium Chloride 0.9% 100 ML IVPB SCH (06:03)
[2021-12-17 07:43] LABS: Actual Bicarbonate (HCO3a) 30.2 mEq/L (22-28); Base Excess (BEa) 4.9 mEq/L (-2.0 to +3.0); CO2 Tension 48.5 mmHg (35.0-45.0); Calcium, Ionized (arterial) 1.21 mmol/L (1.12-1.30); Carboxyhemoglobin (COHb) 0.5 gm% (0.0-3.0); Hemoglobin (Hb) 8.9 g/dL (12.0-16.0); Potassium - ABG Lab 3.95 mmol/L (3.70-5.30); pH, Arterial 7.41 (7.35-7.45)
[2021-12-17 07:54] LABS: Puncture Site RRA
[2021-12-17 07:55] LABS: ALV-art Gradient 140.225 mmHg (0-20)
[2021-12-17] MEDS: lamoTRIgine 25 MG TAB PER TUBE SCH (08:40)
[2021-12-17] MEDS: Enoxaparin Sodium 40 MG/0.4 ML SYRINGE SC SCH ×2 (08:40→21:28)
[2021-12-17] MEDS: Senokot S 8.6-50 MG TAB PO SCH ×2 (08:40→21:28)
[2021-12-17] MEDS: Polyethylene Glycol 3350 17 GM Packet PER TUBE SCH (08:40)
[2021-12-17] MEDS: Flecainide 50 MG TAB PER TUBE SCH ×2 (08:55→21:28)
[2021-12-17] MEDS: Dexamethasone 10 MG/ML VIAL SLOW IVP SCH ×2 (08:55→21:28)
[2021-12-17] MEDS: Lorazepam 2 MG/ML VIAL SLOW IVP PRN ×2 (09:19→14:26)
[2021-12-17] MEDS: Pantoprazole 40 MG GRANULES PACKET PO SCH (09:19)
[2021-12-17] MEDS: fentaNYL Citrate-0.9 % NaCl/PF 100 ML IVPB SCH (13:21)
[2021-12-17] MEDS: HumaLOG 300 UNITS/3 ML VIAL SC PRN (16:21)
[2021-12-17] MEDS: BARICITINIB 2 MG TAB PO SCH (21:31)
[2021-12-17] MEDS: Lansoprazole 3 MG/ML ORAL SUSPENSION PER TUBE SCH (21:55)
[2021-12-18] MEDS: fentaNYL Citrate-0.9 % NaCl/PF 100 ML IVPB SCH ×2 (03:33→17:42)
[2021-12-18] MEDS: Propofol 1,000 MG/100 ML VIAL IV PRN ×6 (04:14→22:51)
[2021-12-18 04:40] LABS: #Basophils 0.1 thou/uL (0.0-0.2); #Lymphocytes 1.1 thou/uL (1.20-3.40); #Monocytes 0.5 thou/uL (0.11-0.59); #Neutrophils 5.2 thou/uL (1.40-6.50); %Basophils 0.8 % (0.0-1.0); %Eosinophils 0.4 % (0.0-10.0); %Lymphocytes 15.6 % (21.0-51.0); %Neutrophils 76.2 % (42.0-75.0); Hemoglobin 8.2 g/dL (12.0-16.0); Mean Corpuscular HGB CONC 29.8 g/dL (32.0-36.0); Mean Corpuscular Hemoglobin 22.4 pg (27.0-31.0); Platelet Count 389 thou/uL (130-400); RBC Distribution Width 16.5 % (11.5-14.5); Red Blood Cell (RBC) Count 3.64 mill/uL (4.20-5.40); White Blood Cell (WBC) Count 6.9 thou/uL (4.8-10.8)
[2021-12-18 04:55] LABS: Anion Gap 14 mmol/L (10-20); BUN (Urea Nitrogen) 17 mg/dL (9.8-20.1); Calc. Creatinine Clearance 187 mL/min (70-130); Calcium 9.2 mg/dL (7.8-10.44); Carbon Dioxide 27 mmol/L (22-29); Chloride 102 mmol/L (98-107); Glucose 169 mg/dL (70-105); Potassium 4.2 mmol/L (3.5-5.1); Sodium 139 mmol/L (136-145)
[2021-12-18 07:14] LABS: Actual Bicarbonate (HCO3a) 27.2 mEq/L (22-28); CO2 Tension 44.9 mmHg (35.0-45.0); Calcium, Ionized (arterial) 1.19 mmol/L (1.12-1.30); Carboxyhemoglobin (COHb) 0.8 gm% (0.0-3.0); Hemoglobin (Hb) 12.2 g/dL (12.0-16.0); O2 Tension (PaO2), arterial 86.7 mmHg (80.0-100.0); Potassium - ABG Lab 3.87 mmol/L (3.70-5.30)
[2021-12-18] MEDS: cefTRIAXone\\ROCEPHIN 1 GM in Sodium Chloride 0.9% 100 ML IVPB SCH (08:13)
[2021-12-18] MEDS: Lansoprazole 3 MG/ML ORAL SUSPENSION PER TUBE SCH ×2 (09:53→21:23)
[2021-12-18] MEDS: Flecainide 50 MG TAB PER TUBE SCH ×2 (09:54→21:28)
[2021-12-18] MEDS: Enoxaparin Sodium 40 MG/0.4 ML SYRINGE SC SCH ×2 (09:54→21:19)
[2021-12-18] MEDS: Dexamethasone 10 MG/ML VIAL SLOW IVP SCH ×2 (09:54→21:28)
[2021-12-18] MEDS: Senokot S 8.6-50 MG TAB PO SCH ×2 (09:55→21:20)
[2021-12-18] MEDS: Polyethylene Glycol 3350 17 GM Packet PER TUBE SCH (09:55)
[2021-12-18] MEDS: Lorazepam 2 MG/ML VIAL SLOW IVP PRN (10:19)
[2021-12-18 10:39] LABS: ALV-art Gradient 142.375 mmHg (0-20); Puncture Site RRA
[2021-12-18] MEDS: lamoTRIgine 25 MG TAB PER TUBE SCH (13:32)
[2021-12-18] MEDS: BARICITINIB 2 MG TAB PO SCH (21:20)
[2021-12-19] MEDS: Propofol 1,000 MG/100 ML VIAL IV PRN ×3 (03:22→12:23)
[2021-12-19 04:23] LABS: #Lymphocytes 2.7 thou/uL (1.20-3.40); #Neutrophils 4.3 thou/uL (1.40-6.50); %Basophils 0.5 % (0.0-1.0); %Eosinophils 0.3 % (0.0-10.0); %Lymphocytes 33.1 % (21.0-51.0); %Monocytes 12.6 % (0.0-10.0); %Neutrophils 53.5 % (42.0-75.0); Hemoglobin 9.1 g/dL (12.0-16.0); Mean Corpuscular HGB CONC 30.2 g/dL (32.0-36.0); Mean Corpuscular Hemoglobin 22.6 pg (27.0-31.0); Mean Corpuscular Volume 74.9 fL (78.0-98.0); Mean Platelet Volume 8.9 fL (7.4-10.4); Platelet Count 421 thou/uL (130-400); RBC Distribution Width 16.9 % (11.5-14.5); Red Blood Cell (RBC) Count 4.01 mill/uL (4.20-5.40); White Blood Cell (WBC) Count 8.1 thou/uL (4.8-10.8)
[2021-12-19 04:41] LABS: ALT (SGPT) 29 U/L (8-55); AST (SGOT) 10 U/L (5-34); Albumin 3.2 g/dL (3.5-5.0); Alkaline Phosphatase 98 U/L (40-110); Anion Gap 11 mmol/L (10-20); BUN (Urea Nitrogen) 19 mg/dL (9.8-20.1); Bilirubin, Direct 0.1 mg/dL (0.1-0.3); Bilirubin, Total 0.2 mg/dL (0.2-1.2); Calc. Creatinine Clearance 205 mL/min (70-130); Calcium 9.1 mg/dL (7.8-10.44); Carbon Dioxide 29 mmol/L (22-29); Chloride 101 mmol/L (98-107); Glucose 95 mg/dL (70-105); Potassium 3.4 mmol/L (3.5-5.1); Protein, Total 6.4 g/dL (6.0-8.3); Sodium 138 mmol/L (136-145)
[2021-12-19] MEDS: fentaNYL Citrate-0.9 % NaCl/PF 100 ML IVPB SCH (05:45)
[2021-12-19 07:36] LABS: Actual Bicarbonate (HCO3a) 29.3 mEq/L (22-28); Base Excess (BEa) 4.3 mEq/L (-2.0 to +3.0); CO2 Tension 45.5 mmHg (35.0-45.0); Calcium, Ionized (arterial) 1.19 mmol/L (1.12-1.30); Carboxyhemoglobin (COHb) 0.2 gm% (0.0-3.0); Hemoglobin (Hb) 9.7 g/dL (12.0-16.0); O2 Tension (PaO2), arterial 92.8 mmHg (80.0-100.0); Potassium - ABG Lab 3.23 mmol/L (3.70-5.30); pH, Arterial 7.43 (7.35-7.45)
[2021-12-19 07:39] LABS: Puncture Site LRA
[2021-12-19 07:40] LABS: ALV-art Gradient 135.525 mmHg (0-20)
[2021-12-19] MEDS ORDERED: Potassium Chloride 20 MEQ TAB PO SCH (10:15)
[2021-12-19] MEDS: Enoxaparin Sodium 40 MG/0.4 ML SYRINGE SC SCH ×2 (10:50→20:00)
[2021-12-19] MEDS: Dexamethasone 10 MG/ML VIAL SLOW IVP SCH ×2 (10:50→20:00)
[2021-12-19] MEDS: cefTRIAXone\\ROCEPHIN 1 GM in Sodium Chloride 0.9% 100 ML IVPB SCH (10:50)
[2021-12-19] MEDS: lamoTRIgine 25 MG TAB PER TUBE SCH (10:51)
[2021-12-19] MEDS: Flecainide 50 MG TAB PER TUBE SCH ×2 (10:51→20:00)
[2021-12-19] MEDS: Senokot S 8.6-50 MG TAB PO SCH ×2 (10:52→20:01)
[2021-12-19] MEDS: Polyethylene Glycol 3350 17 GM Packet PER TUBE SCH (10:52)
[2021-12-19] MEDS: Lansoprazole 3 MG/ML ORAL SUSPENSION PER TUBE SCH (10:54)
[2021-12-19] MEDS: BARICITINIB 2 MG TAB PO SCH (20:00)
[2021-12-20 04:48] LABS: #Basophils 0.1 thou/uL (0.0-0.2); #Lymphocytes 1.2 thou/uL (1.20-3.40); #Monocytes 0.7 thou/uL (0.11-0.59); #Neutrophils 9.7 thou/uL (1.40-6.50); %Basophils 0.5 % (0.0-1.0); %Eosinophils 0.1 % (0.0-10.0); %Lymphocytes 10.1 % (21.0-51.0); %Monocytes 5.8 % (0.0-10.0); %Neutrophils 83.4 % (42.0-75.0); Hemoglobin 9.5 g/dL (12.0-16.0); Mean Corpuscular HGB CONC 30.4 g/dL (32.0-36.0); Mean Corpuscular Hemoglobin 22.7 pg (27.0-31.0); Mean Corpuscular Volume 74.7 fL (78.0-98.0); Mean Platelet Volume 9.2 fL (7.4-10.4); Platelet Count 400 thou/uL (130-400); RBC Distribution Width 16.8 % (11.5-14.5); White Blood Cell (WBC) Count 11.6 thou/uL (4.8-10.8)
[2021-12-20 05:01] LABS: Anion Gap 15 mmol/L (10-20); BUN (Urea Nitrogen) 13 mg/dL (9.8-20.1); Calc. Creatinine Clearance 192 mL/min (70-130); Calcium 9.6 mg/dL (7.8-10.44); Carbon Dioxide 27 mmol/L (22-29); Chloride 104 mmol/L (98-107); Glucose 139 mg/dL (70-105); Potassium 3.9 mmol/L (3.5-5.1); Sodium 142 mmol/L (136-145)
[2021-12-20] MEDS: lamoTRIgine 25 MG TAB PER TUBE SCH (09:10)
[2021-12-20] MEDS: Enoxaparin Sodium 40 MG/0.4 ML SYRINGE SC SCH ×2 (09:13→21:39)
[2021-12-20] MEDS: Dexamethasone 10 MG/ML VIAL SLOW IVP SCH ×2 (09:13→21:39)
[2021-12-20] MEDS: Flecainide 50 MG TAB PER TUBE SCH ×2 (09:14→21:38)
[2021-12-20] MEDS: Senokot S 8.6-50 MG TAB PO SCH ×2 (09:15→21:38)
[2021-12-20] MEDS: Pantoprazole 40 MG VIAL IVP SCH (09:15)
[2021-12-20] MEDS: Polyethylene Glycol 3350 17 GM Packet PER TUBE SCH (09:16)
[2021-12-20] MEDS: hydrOXYzine 25 MG TAB PO PRN ×2 (14:13→22:48)
[2021-12-20] MEDS: BARICITINIB 2 MG TAB PO SCH (21:39)
[2021-12-20] MEDS: HYDROcodone/Acetaminophen 5/325 mg Tablet PO PRN (22:48)
[2021-12-21 06:36] LABS: Anion Gap 19 mmol/L (10-20); BUN (Urea Nitrogen) 14 mg/dL (9.8-20.1); Calc. Creatinine Clearance 177 mL/min (70-130); Calcium 9.8 mg/dL (7.8-10.44); Carbon Dioxide 18 mmol/L (22-29); Chloride 108 mmol/L (98-107); Glucose 112 mg/dL (70-105); Sodium 140 mmol/L (136-145)
[2021-12-21 06:39] LABS: #Lymphocytes 1.8 thou/uL (1.20-3.40); #Monocytes 0.8 thou/uL (0.11-0.59); %Basophils 0.1 % (0.0-1.0); %Eosinophils 0.1 % (0.0-10.0); %Lymphocytes 18.5 % (21.0-51.0); %Monocytes 8.7 % (0.0-10.0); %Neutrophils 72.6 % (42.0-75.0); Hemoglobin 9.7 g/dL (12.0-16.0); Mean Corpuscular HGB CONC 30.1 g/dL (32.0-36.0); Mean Corpuscular Volume 73.2 fL (78.0-98.0); Mean Platelet Volume 9.5 fL (7.4-10.4); Platelet Count 420 thou/uL (130-400); RBC Distribution Width 17.2 % (11.5-14.5); White Blood Cell (WBC) Count 9.6 thou/uL (4.8-10.8)
[2021-12-21] MEDS: Flecainide 50 MG TAB PER TUBE SCH ×2 (09:46→22:07)
[2021-12-21] MEDS: Senokot S 8.6-50 MG TAB PO SCH ×2 (09:47→22:07)
[2021-12-21] MEDS: Pantoprazole 40 MG VIAL IVP SCH (09:47)
[2021-12-21] MEDS: Dexamethasone 10 MG/ML VIAL SLOW IVP SCH (09:47)
[2021-12-21] MEDS: Enoxaparin Sodium 40 MG/0.4 ML SYRINGE SC SCH ×2 (09:48→22:06)
[2021-12-21] MEDS: Polyethylene Glycol 3350 17 GM Packet PER TUBE SCH (09:50)
[2021-12-21] MEDS: lamoTRIgine 25 MG TAB PER TUBE SCH (09:50)
[2021-12-21] MEDS: hydrOXYzine 25 MG TAB PO PRN (18:01)
[2021-12-21] MEDS: BARICITINIB 2 MG TAB PO SCH (22:07)
[2021-12-22] MEDS: hydrOXYzine 25 MG TAB PO PRN ×2 (01:04→15:13)
[2021-12-22] MEDS: HYDROcodone/Acetaminophen 5/325 mg Tablet PO PRN ×2 (01:05→20:03)
[2021-12-22 06:00] LABS: #Lymphocytes 3.7 thou/uL (1.20-3.40); #Neutrophils 4.1 thou/uL (1.40-6.50); %Basophils 0.2 % (0.0-1.0); %Eosinophils 0.1 % (0.0-10.0); %Lymphocytes 41.8 % (21.0-51.0); %Monocytes 11.8 % (0.0-10.0); %Neutrophils 46.1 % (42.0-75.0); Hemoglobin 10.4 g/dL (12.0-16.0); Mean Corpuscular HGB CONC 30.4 g/dL (32.0-36.0); Mean Corpuscular Hemoglobin 22.5 pg (27.0-31.0); Mean Platelet Volume 9.1 fL (7.4-10.4); Platelet Count 415 thou/uL (130-400); RBC Distribution Width 17.3 % (11.5-14.5); Red Blood Cell (RBC) Count 4.65 mill/uL (4.20-5.40); White Blood Cell (WBC) Count 8.8 thou/uL (4.8-10.8)
[2021-12-22 06:20] LABS: Anion Gap 14 mmol/L (10-20); BUN (Urea Nitrogen) 14 mg/dL (9.8-20.1); Calc. Creatinine Clearance 165 mL/min (70-130); Calcium 9.8 mg/dL (7.8-10.44); Carbon Dioxide 24 mmol/L (22-29); Chloride 109 mmol/L (98-107); Glucose 93 mg/dL (70-105); Potassium 3.3 mmol/L (3.5-5.1); Sodium 144 mmol/L (136-145)
[2021-12-22] MEDS: predniSONE 20 MG TAB PO SCH (10:09)
[2021-12-22] MEDS: Flecainide 50 MG TAB PER TUBE SCH ×2 (10:10→19:40)
[2021-12-22] MEDS: Senokot S 8.6-50 MG TAB PO SCH ×2 (10:10→19:40)
[2021-12-22] MEDS: Enoxaparin Sodium 40 MG/0.4 ML SYRINGE SC SCH ×2 (10:10→19:40)
[2021-12-22] MEDS: Polyethylene Glycol 3350 17 GM Packet PER TUBE SCH (10:11)
[2021-12-22] MEDS: lamoTRIgine 25 MG TAB PER TUBE SCH (10:14)
[2021-12-22 14:23] VITALS: BMI 36.8
[2021-12-23] MEDS: Enoxaparin Sodium 40 MG/0.4 ML SYRINGE SC SCH (08:58)
[2021-12-23] MEDS: lamoTRIgine 25 MG TAB PER TUBE SCH (08:59)
[2021-12-23] MEDS: Flecainide 50 MG TAB PER TUBE SCH (08:59)
[2021-12-23] MEDS: predniSONE 20 MG TAB PO SCH (09:00)
[2021-12-23] MEDS: Polyethylene Glycol 3350 17 GM Packet PER TUBE SCH (09:01)
[2021-12-23] MEDS: Senokot S 8.6-50 MG TAB PO SCH ×2 (09:01→20:13)
[2021-12-23] MEDS ORDERED: Haloperidol Lactate 5 MG/ML VIAL IM PRN (13:12)
[2021-12-23] MEDS ORDERED: Ziprasidone 20 MG VIAL IM SCH (13:45)
[2021-12-23] MEDS ORDERED: Sterile Water 10 ML VIAL FS SCH (13:45)
[2021-12-23] MEDS ORDERED: lamoTRIgine 25 MG TAB PO SCH (15:00)
[2021-12-23] MEDS ORDERED: Polyethylene Glycol 3350 17 GM Packet PO SCH (15:00)
[2021-12-23] MEDS: Sterile Water 10 ML ONE ×2 (18:30→19:21)
[2021-12-23] MEDS: Ziprasidone 20 MG VIAL ONE ×2 (18:30→19:21)
[2021-12-23 18:32] LABS: Anion Gap 19 mmol/L (10-20); BUN (Urea Nitrogen) 12 mg/dL (9.8-20.1); Calc. Creatinine Clearance 155 mL/min (70-130); Calcium 9.6 mg/dL (7.8-10.44); Carbon Dioxide 18 mmol/L (22-29); Chloride 109 mmol/L (98-107); Glucose 133 mg/dL (70-105); Potassium 4.6 mmol/L (3.5-5.1); Sodium 141 mmol/L (136-145)
[2021-12-23] MEDS: Flecainide 50 MG TAB PO SCH (20:13)
[2021-12-23] MEDS: Apixaban 5 MG TAB PO SCH (20:14)
[2021-12-23] MEDS: Lorazepam 1 MG TAB PO PRN (20:14)
[2021-12-23] MEDS: Lisinopril 10 MG TAB PO SCH (20:14)
[2021-12-24] MEDS ORDERED: Ziprasidone 20 MG VIAL IM SCH ×2 (08:00→14:30)
[2021-12-24] MEDS ORDERED: Sterile Water 10 ML VIAL FS SCH (08:00)
[2021-12-24 08:06] LABS: #Monocytes 1.2 thou/uL (0.11-0.59); #Neutrophils 5.3 thou/uL (1.40-6.50); %Basophils 0.5 % (0.0-1.0); %Eosinophils 0.2 % (0.0-10.0); %Lymphocytes 23.7 % (21.0-51.0); %Monocytes 13.5 % (0.0-10.0); %Neutrophils 62.1 % (42.0-75.0); Mean Corpuscular HGB CONC 30.5 g/dL (32.0-36.0); Mean Corpuscular Volume 75.5 fL (78.0-98.0); Mean Platelet Volume 9.6 fL (7.4-10.4); Platelet Count 390 thou/uL (130-400); RBC Distribution Width 18.3 % (11.5-14.5); Red Blood Cell (RBC) Count 4.78 mill/uL (4.20-5.40); White Blood Cell (WBC) Count 8.6 thou/uL (4.8-10.8)
[2021-12-24 08:31] LABS: Anion Gap 16 mmol/L (10-20); BUN (Urea Nitrogen) 17 mg/dL (9.8-20.1); Calc. Creatinine Clearance 129 mL/min (70-130); Calcium 9.7 mg/dL (7.8-10.44); Carbon Dioxide 21 mmol/L (22-29); Chloride 111 mmol/L (98-107); Glucose 128 mg/dL (70-105); Potassium 3.3 mmol/L (3.5-5.1); Sodium 145 mmol/L (136-145)
[2021-12-24] MEDS: Apixaban 5 MG TAB PO SCH ×2 (08:54→20:03)
[2021-12-24] MEDS: Lisinopril 10 MG TAB PO SCH ×2 (08:54→20:03)
[2021-12-24] MEDS: predniSONE 20 MG TAB PO SCH (08:54)
[2021-12-24] MEDS: Flecainide 50 MG TAB PO SCH ×2 (08:55→20:02)
[2021-12-24] MEDS: Senokot S 8.6-50 MG TAB PO SCH ×2 (08:58→20:03)
[2021-12-24] MEDS ORDERED: lamoTRIgine 25 MG TAB PO SCH (09:00)
[2021-12-24] MEDS ORDERED: Polyethylene Glycol 3350 17 GM Packet PO SCH (09:00)
[2021-12-24] MEDS ORDERED: Ziprasidone 20 MG VIAL ONE (14:25)
[2021-12-24] MEDS ORDERED: Sterile Water 0 ML ONE (14:26)
[2021-12-24] MEDS ORDERED: Benzonatate 100 MG CAP ONE (14:26)
[2021-12-24] MEDS ORDERED: Sterile Water 10 ML VIAL FS PRN (14:45)
[2021-12-24] MEDS: HumaLOG 300 UNITS/3 ML VIAL SC PRN (16:37)
[2021-12-24] MEDS ORDERED: Loperamide HCl 2 MG CAP PO PRN (17:08)
[2021-12-24] MEDS ORDERED: Loperamide HCl 2 MG CAP PO SCH (17:15)
[2021-12-24] MEDS: Lorazepam 1 MG TAB PO PRN (20:03)
[2021-12-25 04:39] VITALS: BP 96/64; TEMP 97.5
[2021-12-25] MEDS ORDERED: Ziprasidone 20 MG VIAL IM PRN (08:00)
[2021-12-25] MEDS: predniSONE 20 MG TAB PO SCH (10:40)
== END 2021-12-25 08:06 | disposition home or self-care (01) | DRG 207 ==
LOC: ERS 12:33 → ERHOLD 14:19 → IMCU/EMU 17:45 → CCU 12-09 11:21 → T4-B 12-20 19:51
PROVIDERS: ADMIT Internal Medicine; ATTEND Family Medicine
PROC: 8E0ZXY6 Isolation (ICD-10-PCS; 2021-12-08)
PROC: 5A0935A Assistance with Respiratory Ventilation, Less than 24 Consecutive Hours, High Flow/Velocity Cannula (ICD-10-PCS; 2021-12-08)
PROC: XW0 New Technology, Anatomical Regions, Introduction (ICD-10-PCS; 2021-12-08)
PROC: 5A1955Z Respiratory Ventilation, Greater than 96 Consecutive Hours (ICD-10-PCS; principal; 2021-12-09)
PROC: 5A09357 Assistance with Respiratory Ventilation, Less than 24 Consecutive Hours, Continuous Positive Airway Pressure (ICD-10-PCS; 2021-12-09)
PROC: 0BH17EZ Insertion of Endotracheal Airway into Trachea, Via Natural or Artificial Opening (ICD-10-PCS; 2021-12-09)
DX: U07.1 COVID-19 (principal); J12.82 Pneumonia due to coronavirus disease 2019; J80 Acute respiratory distress syndrome; I47.1 Supraventricular tachycardia; F20.9 Schizophrenia, unspecified; F41.9 Anxiety disorder, unspecified; G89.29 Other chronic pain; F17.210 Nicotine dependence, cigarettes, uncomplicated; E66.9 Obesity, unspecified; F31.9 Bipolar disorder, unspecified; K27.9 Peptic ulcer, site unspecified, unspecified as acute or chronic, without hemorrhage or perforation; M54.9 Dorsalgia, unspecified; I10 Essential (primary) hypertension; R45.1 Restlessness and agitation; Z90.49 Acquired absence of other specified parts of digestive tract; Z88.8 Allergy status to other drugs, medicaments and biological substances; Z79.899 Other long term (current) drug therapy; Z68.36 Body mass index [BMI] 36.0-36.9, adult; Z78.1 Physical restraint status
CPT/HCPCS: 36415; 36416; 36600; 71045; 71275; 80048; 80076; 82550; 82805; 83880; 84145; 85025; 85379; 86140; 93005; 93010; 94002; 94003; 94660; 94760; 94799; C9113; J0456; J0696; J1100; J1650; J1815; J1940; J2060; J2270; J2704; J3010; J3486; J3490; J7050; J7512; Q9967